=== PATIENT | male | born 1985 | race Caucasian/White ===

== ENCOUNTER 2016-11-21 22:51 | Emergency (ER) | payer BC ==
[~2016-11-21 22:51] MED LIST: NORCO 5/325 TAB1 TAB PO; VIBRAMYCIN100 MG PO; XANAX0.25 MG PO; ZANTAC150 MG PO
[2016-11-21] MEDS ORDERED: TYLENOL EXTRA500 M1 PO (23:14)
== END 2016-11-21 23:24 ==
LOC: EDMED 22:51
DX: S31.119A Laceration without foreign body of abdominal wall, unspecified quadrant without penetration into peritoneal cavity, initial encounter (principal); F17.200 Nicotine dependence, unspecified, uncomplicated; V19.9XXA Pedal cyclist (driver) (passenger) injured in unspecified traffic accident, initial encounter; Y92.410 Unspecified street and highway as the place of occurrence of the external cause
CPT/HCPCS: J2270; J7030